=== PATIENT | male | born 1975 | race Hispanic/Latino ===

== ENCOUNTER → 2022-06-29 | Outpatient (CLI) | payer OTHER | END | disposition home or self-care (01) | LOC: RAH 14:24 | PROVIDERS: ATTEND Family Medicine | DX: M19.071 Primary osteoarthritis, right ankle and foot (principal); M25.572 Pain in left ankle and joints of left foot; M79.89 Other specified soft tissue disorders; M25.522 Pain in left elbow; M25.521 Pain in right elbow; R07.81 Pleurodynia; M25.552 Pain in left hip; M25.562 Pain in left knee; M25.561 Pain in right knee | CPT/HCPCS: 71100; 73080; 73610 ==